=== PATIENT | female | born 1945 | race Caucasian/White ===

== ENCOUNTER 2016-08-30 13:00 | Inpatient (IN) | payer OTHER ==
--- NOTE | 2016-08-30 13:23 | CPEKG ---
Heart Rate: 101 RR Interval: 594 P-R Interval: 212 QRSD Interval: 82 QT Interval: 336 QTC Interval: 436 P Jefferson: 85 QRS Jefferson: 59 T Wave Jefferson: 76 EKG Severity - BORDERLINE ECG - EKG Impression: SINUS TACHYCARDIA Electronically Signed By: Lance Sun 30-Aug-2016 13:52:49
[2016-08-30] MEDS ORDERED: ONDANSETRON 4 MG/2 ML VIAL ONE (13:28)
[2016-08-30] MEDS ORDERED: NS 1,000 ML IV ONE (13:28)
--- NOTE | 2016-08-30 13:31 | EDPHY ---
H & P Stated Complaint: n/v generalized abd pain/ hx afib/weakness Time Seen by Provider: 08/30/16 13:15 HPI/ROS: CHIEF COMPLAINT: Generalized abdominal pain HISTORY OF PRESENT ILLNESS: The patient presents to the ED with a 1 day history of generalized abdominal pain and 2 episodes of bilious vomiting. The patient denies diarrhea. The patient denies prior history of abdominal disease or surgery. The patient denies any recent alcohol use. She denies melena or hematemesis. The patient states her pain is generalized and moderate to severe in nature. The patient denies any travel outside the [place]. She denies any additional infectious symptoms. REVIEW OF SYSTEMS: A comprehensive 10 point review of systems is otherwise negative aside from elements mentioned in the history of present illness. Source: Patient Exam Limitations: No limitations - Personal History Current Tetanus/Diphtheria Vaccine: Yes - Medical/Surgical History Hx Asthma: No Hx Chronic Respiratory Disease: No Hx Diabetes: No Hx Cardiac Disease: Yes Hx Renal Disease: No Hx Cirrhosis: No Hx Alcoholism: No Hx HIV/AIDS: No Hx Splenectomy or Spleen Trauma: No Other PMH: [id number] MEDS. HYPOTHYROID. DENIES SURG. afib - Social History Smoking Status: Never smoked - Physical Exam Exam: General Appearance: Alert, no distress Eyes: Pupils equal and round no pallor or injection ENT, Mouth: Mucous membranes moist Respiratory: There are no retractions, lungs are clear to auscultation Cardiovascular: Regular rate and rhythm Gastrointestinal: Slightly distended, diffuse tenderness to palpation noted all 4 quadrants Neurological: A&O, normal motor function, normal sensory exam, normal cranial nerves Skin: Warm and dry, no rashes Musculoskeletal: Neck is supple nontender Extremities: symmetrical, full range of motion Constitutional: Initial Vital Signs Temperature (C) 36.7 C 08/30/16 13:11 Heart Rate 86 08/30/16 13:11 Respiratory Rate 20 08/30/16 13:11 Blood Pressure 96/67 L 08/30/16 13:11 O2 Sat (%) 97 08/30/16 13:11 O2 Delivery Mode Nasal Cannula O2 (L/minute) 2 Allergies/Adverse Reactions: Antihistamines - Alkylamine Allergy (Verified 08/30/16 13:09) formaldehyde Allergy (Verified 08/30/16 13:10) antihistami Allergy (Uncoded 07/15/15 10:15) Home Medications: Medication Instructions Recorded Apixaban [Eliquis] 5 mg PO BID 08/30/16 Herbals/Supplements -Info Only 1 ea PO DAILY 08/30/16 Multivitamins [Multivitamin (*)] 1 each PO DAILY 08/30/16 Thyroid,Pork [[place] Thyroid] 30 mg PO DAILY 08/30/16 Medical Decision Making - Diagnostics Imaging Results: Imaging Impressions Abdomen CT 08/30/16 13:36 Impression: 1. Sigmoid diverticulitis with trace free air and moderate free fluid, compatible with perforation, with no discrete abscess. 2. Mild pelviureterectasis, likely related to pelvic inflammation. 3. Duodenal diverticulum. 4. Additional findings as above. Findings discussed with Dr. Lance Sun on 08/30/2016 at 1506 hours. ED Course/Re-evaluation: The patient presents to the emergency department with abdominal pain and vomiting. The patient was noted to be quite tender on her examination. The patient had an IV established. She received IV Zofran and morphine. Given her exquisite tenderness she was taken for a CT scan of the abdomen pelvis which demonstrates evidence of diverticulitis with micro perforation and free air. The patient received IV Invanz. I consulted with Dr. Phillips, general surgery at 3:00 p.m.. The patient received IV Invanz. She was evaluated by Dr. Phillips in the ED at 4 :15 p.m.. The patient will be admitted to the hospital this evening under his care. The patient was re-evaluated by myself at 4:30 p.m.. She is resting comfortably in the room. Differential Diagnosis: Differential diagnosis considered includes appendicitis, diverticulitis, perforation, obstruction, nephrolithiasis - Data Points Laboratory Results: Laboratory Results 08/30/16 13:21 08/30/16 13:21 08/30/16 08/30/16 08/30/16 13:23 13:21 13:21 WBC 11.07 10^3/uL H 10^3/uL (3.80-9.50) RBC 4.63 10^6/uL 10^6/uL (4.18-5.33) Hgb 14.1 g/dL g/dL (12.6-16.3) POC Hgb 16.0 gm/dL H gm/dL (12.3-15.9) Hct 42.2 % % (38.0-47.0) POC Hct 47 % % (35.5-47.5) MCV 91.1 fL fL (81.5-99.8) MCH 30.5 pg pg (27.9-34.1) MCHC 33.4 g/dL g/dL (32.4-36.7) RDW 13.5 % % (11.5-15.2) Plt Count 215 10^3/uL 10^3/uL (150-400) MPV 9.4 fL fL (8.7-11.7) Neut % (Auto) 91.1 % H % (39.3-74.2) Lymph % (Auto) 4.1 % L % (15.0-45.0) Callahan % (Auto) 3.9 % L % (4.5-13.0) Eos % (Auto) 0.0 % L % (0.6-7.6) Baso % (Auto) 0.5 % % (0.3-1.7) Nucleat RBC Rel Count 0.0 % % (0.0-0.2) Absolute Neuts (auto) 10.09 10^3/uL H 10^3/uL (1.70-6.50) Absolute Lymphs (auto) 0.45 10^3/uL L 10^3/uL (1.00-3.00) Absolute Monos (auto) 0.43 10^3/uL 10^3/uL (0.30-0.80) Absolute Eos (auto) 0.00 10^3/uL L 10^3/uL (0.03-0.40) Absolute Basos (auto) 0.06 10^3/uL 10^3/uL (0.02-0.10) Absolute Nucleated RBC 0.00 10^3/uL 10^3/uL (0-0.01) Immature Gran % 0.4 % % (0.0-1.1) Immature Gran # 0.04 10^3/uL 10^3/uL (0.00-0.10) POC Sodium 140 mEq/L mEq/L (134-144) Sodium 136 mEq/L mEq/L (134-144) POC Potassium 3.8 mEq/L mEq/L (3.3-5.0) Potassium 4.1 mEq/L mEq/L (3.5-5.2) POC Chloride 99 mEq/L mEq/L (96-108) Chloride 100 mEq/L mEq/L (97-110) Carbon Dioxide 26 mEq/l mEq/l (22-31) Anion Gap 10 mEq/L mEq/L (8-16) POC BUN 17 mg/dL mg/dL (7-23) BUN 17 mg/dL mg/dL (7-23) Creatinine 0.7 mg/dL mg/dL (0.6-1.0) POC Creatinine 0.7 mg/dL mg/dL (0.6-1.2) Estimated GFR > 60 Glucose 141 mg/dL H mg/dL (70-100) POC Glucose 146 mg/dL H mg/dL (70-100) Calcium 9.5 mg/dL mg/dL (8.5-10.4) Total Bilirubin 1.1 mg/dL mg/dL (0.1-1.4) Conjugated Bilirubin 0.3 mg/dL mg/dL (0.0-0.5) Unconjugated Bilirubin 0.8 mg/dL mg/dL (0.0-1.1) AST 21 IU/L IU/L (14-46) ALT 34 IU/L IU/L (9-52) Alkaline Phosphatase 67 IU/L IU/L (38-126) Total Protein 7.6 g/dL g/dL (6.3-8.2) Albumin 4.4 g/dL g/dL (3.5-5.0) Lipase 93.0 IU/L IU/L (23-300) Medications Given: Discontinued Medications Sodium Chloride (Ns) 1,000 mls @ 0 mls/hr IV ONCE ONE PRN Reason: Wide Open Stop: 08/30/16 13:29 Last Admin: 08/30/16 13:37 Dose: 1,000 mls Morphine Sulfate (Morphine) 4 mg IVP EDNOW ONE Stop: 08/30/16 13:39 Last Admin: 08/30/16 13:53 Dose: 4 mg Ondansetron HCl (Zofran) 4 mg IVP EDNOW ONE Stop: 08/30/16 13:39 Last Admin: 08/30/16 13:53 Dose: 4 mg Point of Care Test Results: 08/30/16 13:23 POC Sodium 140 POC Potassium 3.8 POC Chloride 99 POC BUN 17 POC Creatinine 0.7 POC Glucose 146 H Departure - Departure Disposition: [facility] Inpatient Acute Clinical Impression: Diverticulitis of colon with perforation Condition: Fair Referrals: Jose Juan Ferraro MD [Primary Care Provider] - As per Instructions
[2016-08-30 13:38] LABS: % IMMATURE GRANULYOCYTES 0.4 % (0.0-1.1); ABSOLUTE IMMATURE GRANULOCYTES 0.04 10^3/uL (0.00-0.10); ADD DIFF? NO; ADD MORPH? NO; ADD SCAN? NO; ATYPICAL LYMPHOCYTE FLAG 0 (0-99); FRAGMENT RBC FLAG 0 (0-99); HEMATOCRIT 42.2 % (38.0-47.0); HEMOGLOBIN 14.1 g/dL (12.6-16.3); LEFT SHIFT FLG 80 (0-99); LIPEMIA HEMOLYSIS FLAG 80 (0-99); MEAN CELL HEMOGLOBIN 30.5 pg (27.9-34.1); MEAN CELL HEMOGLOBIN CONCENTR. 33.4 g/dL (32.4-36.7); MEAN CELL VOLUME 91.1 fL (81.5-99.8); MEAN PLATELET VOLUME 9.4 fL (8.7-11.7); PLATELET CLUMPS FLAG 10 (0-99); PLATELET COUNT 215 10^3/uL (150-400); RED BLOOD CELL COUNT 4.63 10^6/uL (4.18-5.33); RED CELL DISTRIBUTION WIDTH 13.5 % (11.5-15.2)
[2016-08-30] MEDS ORDERED: ONDANSETRON 4 MG/2 ML VIAL IVP ONE (13:38)
[2016-08-30 13:56] LABS: ALANINE AMINOTRANSFERASE 34 IU/L (9-52); ALBUMIN 4.4 g/dL (3.5-5.0); ALKALINE PHOSPHATASE 67 IU/L (38-126); ANION GAP 10 mEq/L (8-16); ASPARTATE AMINOTRANSFERASE 21 IU/L (14-46); BILIRUBIN,TOTAL 1.1 mg/dL (0.1-1.4); BILIRUBIN-CONJUGATED 0.3 mg/dL (0.0-0.5); BILIRUBIN-UNCONJUGATED 0.8 mg/dL (0.0-1.1); CALCIUM 9.5 mg/dL (8.5-10.4); CARBON DIOXIDE 26 mEq/l (22-31); CHLORIDE 100 mEq/L (97-110); CREATININE 0.7 mg/dL (0.6-1.0); GLOMERULAR FILTRATION RATE > 60; GLUCOSE 141 mg/dL (70-100); POTASSIUM 4.1 mEq/L (3.5-5.2); SODIUM 136 mEq/L (134-144); TOTAL PROTEIN 7.6 g/dL (6.3-8.2)
[2016-08-30] MEDS ORDERED: IOPAMIDOL (ISOVUE-300) 100 ML BTL ONE (14:06)
[2016-08-30] MEDS ORDERED: ZOLPIDEM TARTRATE 5 MG TAB PO PRN (16:24)
[2016-08-30] MEDS ORDERED: ONDANSETRON DISINTEGRATING 4 MG TAB PO PRN (16:24)
--- NOTE | 2016-08-30 16:40 | PDCONSULT ---
Dental Scheduler Note: See full dictated H&P- 71yo female presents to ER with complaints of abdominal pain and nausea/vomiting. CT scan reveals perforated diverticulitis. Patient seen in ER resting flat in bed. Pain better controlled currently. Given 1 dose Invanz 1gm IV. PMH: Afib (on Eliquis), hypothyroidism, No prior surgical history. SH: nonsmoker, retired. A&O x 3, Abd: soft, tender RLQ. Plan: admit ( see admission order), bowel rest, hold Eliquis. Case discussed with Dr. Phillips. He will review CT scan with radiology (differential diagnosis: perforated appendicitis).
--- NOTE | 2016-08-30 17:40 | GHP ---
[f rep st] HISTORY AND PHYSICAL DATE OF ADMISSION: 08/30/2016 REASON FOR ADMISSION: Perforated diverticulitis. HISTORY OF PRESENT ILLNESS: Patient is a 71-year-old female who presented to [facility] Emergency Room after experiencing 24 hours of abdominal pain and nausea and vomiting. She states she started with a headache , back pain and abdominal pain yesterday morning. This persisted throughout the day. She was up several times throughout the night and after no improvement today, she presented for further evaluation. Upon arrival to the emergency room she underwent CT scan which revealed a possible perforated diverticulitis and request for evaluation was placed for General Surgery. The patient was seen in the emergency room at which time she was resting comfortably in bed. Her pain was much better controlled than on admission. She does report having a bowel movement as of yesterday morning. She states it was essentially normal but she continued to feel bloated. She reports having a colonoscopy greater than 10 years ago at which time she reports no diagnosed issues. PAST MEDICAL HISTORY: Includes atrial fibrillation currently on Eliquis, hypothyroid currently on [place] thyroid and pre glaucoma. PAST SURGICAL HISTORY: None. FAMILY HISTORY: Significant for father had hypertension and CVA. Mother had history of diabetes and had polyps removed. SOCIAL HISTORY: She is . She is retired. She was previously an adult education vp client services. She denies smoking history. She does admit to alcohol use, drinking 1 glass of wine per day and denies recreational drug use. ALLERGIES: She denies any drug allergies but does have listed in [employer] allergy of antihistamines. REVIEW OF SYSTEMS: GENERAL: She denies recent weight gain, weight loss, fevers or chills. HEENT: She has had recent diagnosis of pre glaucoma with increased eye pressures. She denies changes in hearing, difficulty swallowing. PULMONARY: She denies shortness of breath, cough or hemoptysis. CARDIAC: She denies chest pain. She does have a history of atrial fibrillation as noted above. GI: She has had abdominal pain, nausea and vomiting. She denies changes in bowel movements but has not had a bowel movement since yesterday morning. NEUROLOGIC: She has had complaints of headache. She denies history of seizures or strokes. She denies numbness or tingling in her arms or legs. MUSCULOSKELETAL: She has had complaints of back pain but denies joint pain or swelling. HEMATOLOGIC: She is on Eliquis chronically, denies bleeding or bruising issues. ENDOCRINE: She is hypothyroid. She denies polydipsia, polyuria. She denies heat or cold intolerances. PSYCHIATRIC: She denies anxiety or depression. PHYSICAL EXAMINATION: VITAL SIGNS: Blood pressure is 102/71, pulse is 107, she is 96% on 2 L nasal cannula. GENERAL: She is alert and oriented x3. She is a thin but well developed female, well nourished. She is resting comfortably in bed. HEENT: Normocephalic, atraumatic. Anicteric. CARDIOVASCULAR: Normal sinus rhythm. LUNGS: Clear. ABDOMEN: Soft. She is tender predominantly of the lower quadrant but tenderness extends to left lower quadrant as well. Pulses are 2+. EXTREMITIES: Show no edema. SKIN: Normal and she is neurologically intact. LABORATORY DATA: White blood count is 11. H/H is 14 and 42.2, platelets are 215, sodium 136, potassium 4.1, BUN and creatinine 17 and 0.7, glucose is 141, AST 21, ALT 34, alkaline phosphatase 67. ASSESSMENT/PLAN: Perforated diverticulitis. Patient will be admitted - see full admission orders. Will place the patient on bowel rest. Will keep her currently n.p.o. and hold her Eliquis. This case was discussed with Dr. Phillips. He is planning to review the CT scan with Radiology as differential diagnosis consists of perforated appendicitis. Will start the patient on Invanz 1 gram IV daily. IV Dilaudid for pain, then D5 half normal saline with 20 of KCl IV. /[id number]/MODL Pt seen and examined with Marya Reilly I agree with the above finding and plan. Additionally imaging studies reviewed with radiology. No appendicitis Clear liq diet Clinical reassessment periodically If no improvement in 24-72 hr consider exploration MTDD
[2016-08-30] MEDS: HYDROmorphONE/DILAUDID 1 MG/ML SYR IVP PRN (17:43)
[2016-08-30] MEDS: ACETAMINOPHEN 325 MG TAB PO PRN (20:17)
[2016-08-30] MEDS: ERTAPENEM 1 GM in NS 100 ML IV SCH (20:18)
--- NOTE | 2016-08-30 23:52 | SOAPPROG ---
SOAP Progress Note Assessment/Plan: Assessment/Plan: Afib rate 140 Will hold Eliquis for now. betablocker 5 mg lopressor q6 tele 08/30/16 23:51 Objective: Vital Signs Temp Pulse Resp BP Pulse Ox 37.1 C 130 H 16 124/81 H 95 08/30/16 20:13 08/30/16 20:13 08/30/16 20:13 08/30/16 20:13 08/30/16 20:13 08/29/16 08/30/16 08/31/16 05:59 05:59 05:59 Intake Total 1108 Balance 1108 ICD10 Worksheet Patient Problems: Problems Problem Status Onset Diverticulitis of colon with perforation Acute
[2016-08-31] MEDS: METOPROLOL TARTRATE 5 MG/5 ML INJ IVP SCH ×2 (00:20→06:16)
[2016-08-31] MEDS: HYDROmorphONE/DILAUDID 1 MG/ML SYR IVP PRN ×4 (02:09→15:38)
[2016-08-31] MEDS: ONDANSETRON 4 MG/2 ML VIAL IVP PRN ×2 (02:15→06:53)
[2016-08-31] MEDS: D5W 1/2 NS W/ 20 KCl/L 1,000 ML IV SCH ×2 (06:53→21:05)
[2016-08-31 08:20] LABS: HEMATOCRIT 35.9 % (38.0-47.0); HEMOGLOBIN 12.2 g/dL (12.6-16.3); MEAN CELL HEMOGLOBIN 31.1 pg (27.9-34.1); MEAN CELL VOLUME 91.6 fL (81.5-99.8); RED BLOOD CELL COUNT 3.92 10^6/uL (4.18-5.33); RED CELL DISTRIBUTION WIDTH 13.9 % (11.5-15.2)
[2016-08-31] MEDS: ERTAPENEM 1 GM in NS 100 ML IV SCH (09:09)
[2016-08-31] MEDS ORDERED: THYROID 60 MG TAB PO SCH (10:00)
[2016-08-31] MEDS ORDERED: KETOROLAC 30 MG/1 ML SDV IVP ONE (10:57)
--- NOTE | 2016-08-31 11:05 | SOAPPROG ---
SOAP Progress Note Assessment/Plan: Assessment:c/o pain - no nausea - less diffuse than yesterday. afebrile. bp 90 'S (baseline for her). p 120's. mildly uncomfortable when moving. heart irreg. lungs clear. abd dist, lower quadrant tenderness without rebound or guarding. WBC 10. contained perforated diverticulitis - cont invanz, supportive care. add toradol for pain control. reviewed CT imaging with family at bedside. discussed possibility of continued progress/improvement vs need for subsequent drainage if abscess formation occurs as well as role for more urgent surgical intervention. extensive questions answered. will restart anticoag with lovenox and add cardizem for rate control. Plan: 08/31/16 11:01 Objective: Vital Signs Temp Pulse Resp BP Pulse Ox 37.4 C 120 H 16 94/63 L 99 08/31/16 08:00 08/31/16 08:00 08/31/16 08:00 08/31/16 08:00 08/31/16 08:00 Laboratory Results 08/31/16 08:10 08/30/16 08/31/16 09/01/16 05:59 05:59 05:59 Intake Total 2044 360 Output Total 800 1 Balance 1244 359 ICD10 Worksheet Patient Problems: Problems Problem Status Onset Diverticulitis of colon with perforation Acute
[2016-08-31] MEDS ORDERED: KETOROLAC 15 MG/1 ML SDV IVP SCH (12:00)
[2016-08-31] MEDS: DILTIAZEM 30 MG TAB PO SCH ×3 (12:11→23:50)
[2016-08-31] MEDS: KETOROLAC 15 MG/1 ML SDV IVP SCH ×2 (18:12→23:49)
[2016-08-31] MEDS: THYROID 60 MG TAB PO SCH (21:08)
[2016-08-31] MEDS: ENOXAPARIN 60 MG/0.6 ML SYR SC SCH (21:15)
[2016-08-31] MEDS: ACETAMINOPHEN 325 MG TAB PO PRN (21:23)
[2016-08-31] MEDS ORDERED: LORazepam 1 MG TAB PO PRN (22:15)
[2016-09-01 05:10] LABS: HEMATOCRIT 35.6 % (38.0-47.0); HEMOGLOBIN 11.8 g/dL (12.6-16.3); MEAN CELL HEMOGLOBIN 31.6 pg (27.9-34.1); MEAN CELL HEMOGLOBIN CONCENTR. 33.1 g/dL (32.4-36.7); MEAN CELL VOLUME 95.2 fL (81.5-99.8); RED BLOOD CELL COUNT 3.74 10^6/uL (4.18-5.33); RED CELL DISTRIBUTION WIDTH 14.1 % (11.5-15.2)
[2016-09-01] MEDS: DILTIAZEM 30 MG TAB PO SCH ×3 (06:19→17:08)
[2016-09-01] MEDS: KETOROLAC 15 MG/1 ML SDV IVP SCH ×3 (06:19→17:08)
[2016-09-01] MEDS: ENOXAPARIN 60 MG/0.6 ML SYR SC SCH ×2 (08:45→21:44)
[2016-09-01] MEDS: ERTAPENEM 1 GM in NS 100 ML IV SCH (08:45)
--- NOTE | 2016-09-01 10:28 | SOAPPROG ---
SOAP Progress Note Assessment/Plan: Assessment:pain much improved with toradol. no nausea. no lightheadedness or dizziness. no chest pain. afebrile. BP 80-90 (baseline). P 90's. comfortable. abd soft, markedly less tender. WBC 9. contained perforated diverticulitis - cont invanz, supportive care. again discussed possibility of continued progress/improvement vs need for subsequent drainage if abscess formation occurs as well as role for more urgent surgical intervention. all questions entertained. continue anticoag with lovenox and cardizem (tolerating well with asymptomatic hypotension). diet as able Plan: 08/31/16 11:01 09/01/16 10:26 Objective: Vital Signs Temp Pulse Resp BP Pulse Ox 37.0 C 86 22 H 80/50 L 97 09/01/16 08:00 09/01/16 08:00 09/01/16 08:00 09/01/16 08:00 09/01/16 08:00 Laboratory Results 09/01/16 04:20 08/31/16 09/01/16 09/02/16 05:59 05:59 05:59 Intake Total 2044 3325 97 Output Total 800 301 Balance 1244 3024 97 ICD10 Worksheet Patient Problems: Problems Problem Status Onset Diverticulitis of colon with perforation Acute
[2016-09-01] MEDS: THYROID 60 MG TAB PO SCH (21:44)
[2016-09-02] MEDS: KETOROLAC 15 MG/1 ML SDV IVP SCH ×3 (00:12→12:04)
[2016-09-02] MEDS: DILTIAZEM 30 MG TAB PO SCH ×3 (00:12→12:06)
[2016-09-02 05:12] LABS: HEMATOCRIT 30.1 % (38.0-47.0); MEAN CELL HEMOGLOBIN CONCENTR. 33.2 g/dL (32.4-36.7); MEAN CELL VOLUME 93.2 fL (81.5-99.8); RED BLOOD CELL COUNT 3.23 10^6/uL (4.18-5.33); RED CELL DISTRIBUTION WIDTH 13.9 % (11.5-15.2)
[2016-09-02 05:17] LABS: ANION GAP 5 mEq/L (8-16); CALCIUM 8.1 mg/dL (8.5-10.4); CARBON DIOXIDE 25 mEq/l (22-31); CHLORIDE 104 mEq/L (97-110); CREATININE 0.7 mg/dL (0.6-1.0); GLOMERULAR FILTRATION RATE > 60; GLUCOSE 99 mg/dL (70-100); SODIUM 134 mEq/L (134-144)
[2016-09-02] MEDS: D5W 1/2 NS W/ 20 KCl/L 1,000 ML IV SCH (05:45)
[2016-09-02] MEDS: ENOXAPARIN 60 MG/0.6 ML SYR SC SCH (09:17)
[2016-09-02] MEDS: ERTAPENEM 1 GM in NS 100 ML IV SCH (09:17)
[2016-09-02 12:10] VITALS: BP 118/67; PULSE 100
[2016-09-02 13:41] VITALS: RESP 24; TEMP 98.2; O2SAT 93
== END 2016-09-02 14:52 | disposition home or self-care (01) | DRG 392 ==
LOC: F3E 17:29
PROVIDERS: ADMIT Surgery; ATTEND Surgery
DX: K57.20 Diverticulitis of large intestine with perforation and abscess without bleeding (principal); I48.91 Unspecified atrial fibrillation; E03.9 Hypothyroidism, unspecified
CPT/HCPCS: 82947-QW; J1170; J1335; J1650; J1885; J2405; Q9967

== ENCOUNTER 2018-07-23 07:56 | Emergency (ER) | payer OTHER ==
--- NOTE | 2018-07-23 08:26 | EDPHY ---
H & P Stated Complaint: Pt. states A-fib 2 days ago,Chest congestion,fatigue and dizziness Time Seen by Provider: 07/23/18 08:02 HPI/ROS: CHIEF COMPLAINT: Fatigue, dizziness, chest discomfort HISTORY OF PRESENT ILLNESS: This is a 73-year-old female presents emergency department reporting that over the last 2-3 days she has been bothered with nasal congestion, postnasal drip, vertiginous symptoms, generalized fatigue, and this morning developed brief, intermittent episodes of some chest discomfort. Patient has intermittent AFib and reports she was in AFib on Friday. She tells me she has a blood pressure machine will tell her if she is in AFib. She felt lightheaded but did not have a rapid heart rate. Patient has a history of vertigo and describes swimming sensation in her brain, spinning sensation, and dizziness which kept her in bed on Friday, yesterday. Symptoms were worsened with head movements and relieved with trying an Carlos maneuver as well as laying still with her eyes closed. She also gives a history of significant nasal congestion and a prior history of bronchitis, although denies any recent chest congestion or coughing. She does have a history of atrial fibrillation which is been intermittent and she is on Eliquis. This morning she developed brief episodes of left-sided chest discomfort described as sharp. Lasts less than 5 min. Somewhat similar to episode of pleurisy previously. No clear exacerbating or relieving factors. Not pleuritic. Not associated with shortness of breath, diaphoresis, nausea, or vomiting. Patient denies history of coronary artery disease. No history of hypertension, diabetes, significant hypercholesterolemia, or smoking. No fever, chills, chest pain, shortness of breath, palpitations, vomiting, diarrhea, urinary complaints, headache, lightheadedness. REVIEW OF SYSTEMS: A comprehensive 10 system review of systems was reviewed and is otherwise negative aside from elements mentioned in the history of present illness and medical decision making. PAST MEDICAL HISTORY: Intermittent atrial fibrillation, on Eliquis. Hypothyroidism. SOCIAL HISTORY: Nonsmoker. VITAL SIGNS Reviewed by me. GENERAL: Well-developed, well-nourished, resting comfortably in no respiratory distress. HEENT: Atraumatic. Eyes: No icterus, no injection. 2 beat nystagmus with rightward gaze. Extraocular movements intact. Mouth: moist mucous membranes. No erythema or lesions. Neck: supple with no adenopathy. LUNGS: Clear to auscultation bilaterally, no wheezes, rhonchi or rales. CARDIAC: Regular rate and rhythm, no rubs, murmurs or gallops. CHEST: No chest wall tenderness to palpation. ABDOMEN: Soft, nontender, nondistended, bowel sounds normal. BACK: No CVA tenderness. EXTREMITIES: No trauma. No edema. Range of motion is normal throughout. NEURO: Alert and oriented, grossly nonfocal. SKIN: Warm and dry, no rash. PSYCHIATRIC: Normal mentation, no agitation. - Medical/Surgical History Hx Asthma: No Hx Chronic Respiratory Disease: No Hx Diabetes: No Hx Cardiac Disease: Yes Hx Renal Disease: No Hx Cirrhosis: No Hx Alcoholism: No Hx HIV/AIDS: No Hx Splenectomy or Spleen Trauma: No Other PMH: [id number] MEDS,BPV,Stress/Anxiety. HYPOTHYROID. AFIB - Social History Smoking Status: Never smoked Constitutional: Initial Vital Signs Temperature (C) 36.6 C 07/23/18 08:06 Heart Rate 81 07/23/18 08:06 Respiratory Rate 16 07/23/18 08:06 Blood Pressure 133/63 H 07/23/18 08:06 O2 Sat (%) 96 07/23/18 08:06 O2 Delivery Mode Room Air Allergies/Adverse Reactions: Antihistamines - Alkylamine Allergy (Verified 07/23/18 08:20) formaldehyde Allergy (Verified 07/23/18 08:20) gluten Allergy (Verified 07/23/18 08:20) Home Medications: Medication Instructions Recorded Apixaban [Eliquis] 5 mg PO BID 08/30/16 Herbals/Supplements -Info Only 1 ea PO DAILY 08/30/16 Multivitamins [Multivitamin (*)] 1 each PO DAILY 08/30/16 Thyroid,Pork [[place] Thyroid] 30 mg PO DAILY 08/30/16 Albuterol Hfa Anes Only [Proair 2 puffs IH QID #1 mdi 07/23/18 Hfa Icu (*)] Cephalexin [Keflex (RX)] 500 mg PO TID 7 Days cap 07/23/18 predniSONE 40 mg PO DAILY #6 tab 07/23/18 Medical Decision Making - Diagnostics EKG Interpretation: 12-LEAD EKG: Please see the full report in [facility]. My interpretation: Sinus rhythm, no ST or T-wave changes Imaging Results: CXR Impression: 1. Right upper lobe nodule. CT chest is recommended for further evaluation. 2. Hyperexpanded lungs with interstitial prominence, suggesting emphysema. 3. Additional findings as above. Findings discussed with Soni Cruz MD 07/23/2018 at 8:41. Dictated By: Fer Santiago MD Imaging: Discussed imaging studies w/ call center recruiter Radiologist, I viewed and interpreted images myself ED Course/Re-evaluation: 73-year-old female presenting with reports of generalized fatigue and dizziness for 2 days, the possibility of an episode of AFib 2 days ago, and some anterior chest discomfort, difficult to describe, now resolved. Evaluation includes an EKG demonstrating sinus rhythm with no ischemic changes, negative troponin, negative D-dimer, normal labs. Chest x-ray demonstrates a right upper lobe nodule and findings consistent with COPD. 915: Patient was re-evaluated. is now present reports that he asked her to be evaluated urgent care secondary to generalized fatigue. Patient now describes a chest pain starting around 5:00 a.m. In the morning and being present and till 8:00 a.m.. Some waxing and waning component with worsening with certain movements. Plan at this point, prednisone 40 mg for treatment of pleurisy verses obstructive disease. Discussed repeat troponin 4 hr to further evaluate for coronary artery disease. HEART SCORE: History: 0 EK Age: 4 Risk Factors: 0 Troponin: 0 Discussed the heart score with the patient and her . Will plan on a 4 hr troponin. Course discussed at length with Dr. Castaneda as well. Prior records report intermittent atrial fibrillation as well as 1 report of persistent atrial fibrillation. Will recommend Holter monitor, and close follow-up. Patient's repeat troponin is 0.00. She is feeling better after the prednisone. Will discharge with a meter dose inhaler. Patient's urine was also positive for nitrates. Urine microscopic is pending at this time. Will follow. Patient's urine microscopic does not indicate infection. As I discussed with her previously she should take the Keflex if her urine appeared to be infective. She should take the prednisone as directed for potential pleurisy as well as use the meter dose inhaler as her chest x-ray indicates some hyperexpanded lungs. Patient will need follow up with her primary care physician for pulmonary nodule as well as follow up with [facility] as mentioned above for Holter monitor and re-evaluation. Differential Diagnosis: After history and physical examination, the differential for chest pain and fatigue was considered, including but not limited to, myocardial ischemia, acute coronary syndrome, pulmonary embolus, chest wall pain, pleural inflammation, airways disease, infection, and pulmonary infectious causes. - Data Points Microbiology Results: MICROBIOLOGY 07/23/18 10:15 Urine,Clean Catch Urine Culture - Preliminary Gram Neg Samy Lactose Scale Attendant Medications Given: Discontinued Medications Sodium Chloride (Ns) 500 mls @ 1,000 mls/hr IV EDNOW ONE PRN Reason: Protocol Stop: 07/23/18 09:04 Last Admin: 07/23/18 09:05 Dose: 500 mls Prednisone (Prednisone) 40 mg PO EDNOW ONE Stop: 07/23/18 09:53 Last Admin: 07/23/18 10:07 Dose: 40 mg Point of Care Test Results: CBC CBC Collection Date 07/23/18 CBC Collection Time 08:25 WBC 4.32 RBC 4.45 HGB 13.8 HCT 41.2 PLT 198 Neut # 2.25 Neut 52.1 LYMPH # 1.46 LYMPH 33.8 MCV 92.6 Chemistry 07/23/18 07/23/18 07/23/18 12:06 08:31 08:30 POC Sodium 140 mEq/L mEq/L (135-145) POC Potassium 4.0 mEq/L mEq/L (3.3-5.0) POC Chloride 106.0 mEq/L mEq/L (97-110) POC Total CO2 28 mEq/L mEq/L (22-31) POC BUN 20 mg/dL mg/dL (7-23) POC Creatinine 1.0 mg/dL mg/dL (0.6-1.0) POC Glucose 90 mg/dL mg/dL (70-100) POC Calcium 9.5 mg/dL mg/dL (8.5-10.4) POC Troponin I 0.00 ng/mL ng/mL 0.01 ng/mL ng/mL (0.00-0.08) (0.00-0.08) D-Dimer D-Dimer Collection Date 07/23/18 D-Dimer Collection Time 08:25 D-Dimer (ng/ml) <100 Urine Dip Collection Date 07/23/18 Collection Time 10:00 Specific [place] (1.002-1.030) 1.015 PH (5.0-7.5) 7.5 Leukocytes (Negative) Trace Nitrites (Negative) Positive Protein (Negative) Negative Glucose (Negative) Negative Ketones (Negative) Negative Urobilnogen (0.2-1.0 EU) 0.2 Bilirubin (Negative) Negative Blood (Negative) Negative Departure - Departure Disposition: Home, Routine, Self-Care Clinical Impression: Chest discomfort, Fatigue Condition: Good Instructions: Cephalexin (By mouth), Prednisone (By mouth), Chest Pain (ED), Pleurisy (ED), Fatigue (ED) Additional Instructions: 1. For your nasal congestion, I suggest that you obtain Flonase nasal spray. This is available [email or web address]. 2. For your chest discomfort, it is possible that it is related to some airways disease or pulmonary disease. You may need to have a pulmonary function test performed in the future. You been given a prescription for an albuterol meter dose inhaler. Please use this if you developed recurrent chest discomfort. Your evaluation in the emergency department does not clearly demonstrate any signs of a heart attack or coronary artery disease. However, further testing may be indicated including a stress test. If your chest discomfort returns, and is associated with shortness of breath, palpitations, fainting, sweating, nausea, or vomiting or other concerns, please return to the emergency department for further evaluation. 3. For your atrial fibrillation, a shell assembler suggest a Holter monitor. This will monitor your heart for 30 days. Please contact [facility] as soon as possible to arrange a Holter monitor. 4. Lastly, you're urine may demonstrate a urinary tract infection. However, the results of a urine microscopic evaluation is needed. This will be available later this afternoon. You may call the emergency department at to find of these results. Referrals: MIKAELA MARSH [Primary Care Provider] - As per Instructions Kirk Castaneda MD [Medical Doctor] - As per Instructions (Please follow up with Dr. Castaneda or 1 of his colleagues as soon as possible. Please contact [facility] to obtain a Holter monitor as soon as possible.) Prescriptions: Albuterol Hfa Anes Only [Proair Hfa Icu (*)] 2 puffs IH QID #1 mdi Cephalexin [Keflex (RX)] 500 mg PO TID 7 Days cap predniSONE 40 mg PO DAILY #6 tab
[2018-07-23] MEDS ORDERED: NS 500 ML IV ONE (08:35)
[2018-07-23] MEDS ORDERED: predniSONE 20 MG TAB PO ONE (09:52)
[2018-07-23 14:23] VITALS: BP 143/83
--- NOTE | 2018-07-25 12:48 | CPEKG ---
Test Reason : OPEN Blood Pressure : / mmHG Vent. Rate : 078 BPM Atrial Rate : 079 BPM P-R Int : 157 ms QRS Dur : 084 ms QT Int : 380 ms P-R-T Axes : 085 037 062 degrees QTc Int : 433 ms Sinus rhythm Confirmed by Soni Cruz ([id number]) on 07/25/2018 12:48:18 PM Referred By: Soni Cruz Confirmed By:Soni Cruz
== END 2018-07-23 12:45 | disposition home or self-care (01) ==
LOC: CED 07:56
DX: R07.9 Chest pain, unspecified (principal); R53.83 Other fatigue; I48.91 Unspecified atrial fibrillation; Z79.01 Long term (current) use of anticoagulants
CPT/HCPCS: 71046; 93005; 96360; 99285; J7512; 80048-ER; 84484-ER; 85025-QW-ER; 85379-QW-ER